=== PATIENT | female | born 1950 | race Caucasian/White ===

== ENCOUNTER → 2024-04-09 13:25 | Outpatient (REF) | payer MEDICARE, OTHER, SELFPAY | LOC: HWRAD 13:25 | PROVIDERS: ATTENDING PHYSICIAN Obstetrics & Gynecology Gynecologic Oncology; FAMILY PHYSICIAN Family Medicine | DX: C54.1 Malignant neoplasm of endometrium (principal) | CPT/HCPCS: 71260; 74177; Q9967 ==

== ENCOUNTER → 2024-04-21 08:49 | Outpatient (REF) | payer MEDICARE, OTHER, SELFPAY ==
[2024-04-21 10:35] LABS: % Basophils 0.3 % (0-2); % Eosinophils 2.7 % (0-6); % Immature Granulocytes 0.4 % (0-0.5); % Lymphocytes 21.8 % (20.5-51.1); % Monocytes 6.7 % (1.7-9.3); % Neutrophils 68.1 % (42.2-75.2); Absolute Eosinophils 0.2 10^3/uL (0-0.7); Absolute Lymphocytes 1.5 10^3/uL (1.2-3.4); Absolute Monocytes 0.5 10^3/uL (0.1-0.6); Absolute Neutrophils 4.6 10^3/uL (1.4-6.5); Hematocrit 42.2 % (37.0-47.0); Hemoglobin 14.4 g/dL (12.0-16.0); Mean Corp Hgb Conc. 34.1 g/dL (33.0-37.0); Mean Corpuscular Hgb 31.3 pg (27.0-31.0); Mean Corpuscular Volume 91.7 fL (81.0-99.0); Mean Platelet Volume 10.8 fL (7.4-10.4); Nucleated Red Blood Cells % 0 %; Platelet Count 192 10^3/uL (130-400); Red Cell Dist. Width 12.9 % (11.5-14.5); White Blood Cell Count 6.8 10^3/uL (4.8-10.8)
[2024-04-21 11:49] LABS: ALT (SGPT) 25 U/L (0-35); AST (SGOT) 27 U/L (14-36); Albumin 4.1 g/dl (3.5-5.0); Alkaline Phosphatase 66 U/L (38-126); Blood Urea Nitrogen 14 mg/dl (7-17); Calcium 9.7 mg/dl (8.4-10.2); Carbon Dioxide 29 mmol/L (22-30); Chloride 104 mmol/L (98-107); Glucose 125 mg/dl (70-99); Potassium 4.5 mmol/L (3.5-5.1); Sodium 142 mmol/L (135-145); Total Bilirubin 0.3 mg/dl (0.2-1.3); Total Protein 6.7 g/dl (6.3-8.2); eGFR > 60.00
== END ==
LOC: SDSPAT 08:49
PROVIDERS: ATTENDING PHYSICIAN Obstetrics & Gynecology Gynecologic Oncology; FAMILY PHYSICIAN Family Medicine
DX: Z01.818 Encounter for other preprocedural examination (principal)
CPT/HCPCS: 36415; 80053; 85025; 86850; 86900; 86901

== ENCOUNTER 2024-04-28 07:07 | Day surgery (SDC) | payer MEDICARE, OTHER, SELFPAY ==
[2024-04-21 09:44] VITALS: BMI 30.3
--- NOTE | 2024-04-26 20:08 | W.CON.GYNONC ---
Chief Complaint
-
endometrial cancer
History of Present Illness
73�year�old woman [id number] to me by Dr. Paige Roberts for endometrial cancer. Patient has had postmenopausal bleeding,
her workup included ultrasound of pelvis March 23, 2024 at [facility] indicating uterus to be anteverted measuring
10.9 x 5.6 x 7.4 cm, there is a 5.2 cm solitary left�sided myometrial fibroid which is unchanged in size. Endometrium is thickened
at 12 mm. Right ovary is not seen, left ovary also is not seen. There is no evidence of mass or fluid in the pelvis
In office endometrial biopsy was performed March 11, 2024, that shows detached clusters of adenocarcinoma cells suspicious
for serous carcinoma. I repeated the endometrial biopsy on 04/03 and confirmed high grade serous carcinoma.
Her past medical history significant for hypertension, palpitations, open angle glaucoma, migraines with aura, impaired fasting
glucose and obstructive sleep apnea.
Past surgical history includes tonsillectomy 1958, wisdom teeth extraction 1978, C�section 1965, cyst removed from right thumb,
bilateral carpal tunnel release 2022 and night right knee replacement 2022
Medications include amlodipine,brrimonidine eyedrops,cosopt eyedrops, fish oil capsule, CoQ 10, glucosamine, multivitamin,
vitamin D3, Fioricet and Zofran
Family history significant for maternal grandmother with ovarian colon cancer,
Patient denies tobacco use, patient denies alcohol or drug abuse. Lives at home with and mother, she is a retired nurse
and [employer] RN in [employer]
Medical History
Social History
Tobacco: Non-smoker
Alcohol: None
Drug: None
Personal:
Living: With Family
Employment: Retired
Allergies
Allergies reflect when allergies were last updated in [facility].
All:�Lisinopril�(angioedema)�,�Bactrim�(rash,�flu�symptoms)�
lisinopril Allergy (Verified 10/16/24 09:49)
Swelling
Sulfa (Sulfonamide Antibiotics) Allergy (Verified 04/22/24 09:49)
Rash
Physical Exam
Physical Exam
General: Well developed, well nourished patient. In no acute distress.
Neck: No thyromegaly. No cervical lymphadenopathy.
Lungs: Clear to auscultation. Good air movement bilaterally.
Cardiac: Regular rate. Regular rhythm. No murmurs appreciated.
Right Breast: No masses or dimpling. No nipple discharge.
Left Breast: No masses or dimpling. No nipple discharge.
Abdomen: Abdomen is soft. Non�tender to palpation. Non�distended.
Extremities: No edema.
Hematologic/Lymphatic: No palpable lymphadenopathy.
Musculoskeletal: Normal range of motion. Strength and Tone are normal.
Skin:Non�jaundiced. No petechia. No purpura.
Neurologic: Speech is fluent. Normal gait and station. Cranial nerves intact.
External normal labia, urethra, anus.
Vagina: Normal mucosa.
Cervix: normal appearance, no discharge.
Uterus: normal size.
Adnexa: No pelvic mass.
RVE: no masses or nodularity
Impression / Plan
-
I spoke with the patient and her and explained to her diagnosis of endometrial cancer incidence workup and generalized
principles of the treatments.
I recommended labs including CMP CBC CA125 urinalysis coagulation studies in preparation for surgery
CT of chest abdomen and pelvis will be obtained to assess preoperatively extent of disease
My initial recommendation is for the patient to undergo total laparoscopic hysterectomy, bilateral salpingo�oophorectomy with
staging to include injection of cervix, excision and mapping of sentinel lymph nodes, peritoneal washings, omental biopsy and
resection of any additional visible disease. This procedure can be completed robotically, procedure will be scheduled probably in
late April.
Risk of surgery including infection bleeding injury to adjacent organs DVT pulmonary embolism and cardiovascular complications
were discussed and reviewed
This patient has multiple family members with malignancies including endometrial cancer colorectal cancer, she has a lot of
concern about genetic predisposition and Colaris panel will be obtained with a reflex to Eusebio.
If the malignancy is low risk we may consider observation, if the malignancy is high risk or there is extrauterine disease, patient
may require postoperative adjuvant treatment with combination of chemotherapy plus minus immunotherapy as well as possible
radiotherapy. Her treatment will be personalized based on molecular characteristics of her tumor
I did request that she obtains medical clearance and ECG from primary care physician preoperatively
She will be notified of the surgery by our schedulers and surgery will be scheduled at [facility]
[2024-04-28] VITALS (9 sets, daily range): BP systolic 122–152; BP diastolic 57–77; BMI 30.3
[2024-04-28] MEDS: NEURONTIN 300 MG PO (12:06)
[2024-04-28] MEDS: MOBIC 15 MG PO (12:06)
[2024-04-28] MEDS: TYLENOL 1000 MG PO (12:07)
[2024-04-28] MEDS: HEPARIN 5000 UNITS SC (12:39)
[2024-04-28] MEDS: DILAUDID 0.25 MG IV (16:15)
--- NOTE | 2024-04-28 17:29 | OR.RPT ---
Operative Report
Operative Report
Date of procedure:April 28, 2024
Preoperative diagnosis: Endometrial cancer high-grade serous carcinoma
Postoperative diagnosis: Same
Surgeon: Anil Villegas
Assist: Brianna Youssef PA-C
& Glen Henderson
Procedure:
Robotic assisted total laparoscopic hysterectomy, bilateral salpingo-oophorectomy, with infracolic omentectomy 10302
Injection of cervix with ICG dye for mapping and identification of sentinel lymph nodes 85281-73
Robotic assisted laparoscopic bilateral pelvic sentinel lymphadenectomy 32470�[id number]
TAP block 95727
Anesthesia: General Endotracheal intubation
Estimated blood loss 100 cc
Urine output: 300 cc
Procedure in detail: This patient was brought to the operating room for definitive management of endometrial cancer. Upon arrival to the operating room she was placed in supine position. General anesthesia was administered she was intubated
without any difficulty. She was placed in lithotomy position using yellowfin stirrups and her arms were wrapped in foam and placed along the patient's side properly. She was prepped on the abdomen perineum and vagina and she was draped. Timeout
procedure was carried out she received 2 g of Ancef and 500 mg of Flagyl prophylactically and had already received 5000 units of heparin. Min catheter was placed under sterile condition for bladder drainage. Anterior lip of the cervix was
grasped with single-tooth tenaculum. A total of 4 cc ICG dye was injected in the cervix at 3 and 9:00 positions, and the injection was repeated at 5 mm and 10 mm deep stations. Uterine manipulator was inserted after dilation of cervix and the
uterus sounded to approximately 14 cm. Vaginal cuff occluder was insufflated.
Next Veress needle was inserted just below the left subcostal margin and insufflation with CO2 gas was performed up to pressure of 15 mmHg. Following this 8 mm XL trocar was introduced 25 cm cephalad to symphysis pubis in the abdomen and a survey
of the upper abdomen reveals both right and left subdiaphragms to be normal omentum is without any abnormalities. Liver spleen stomach appeared to be within normal limits. 8 mm robotic ports were placed in the right and left upper quadrants as
well as right and left lateral abdomen. Tap block was performed with 60 cc combination of ropivacaine and Decadron split on the right and left side injected 2 fingerbreadths below subcostal margins as well as right and left lateral abdomen under
direct visualization. Once this was completed the patient was placed in 28 degree Trendelenburg. We went ahead and docked the robotic system. Washings were collected from posterior cul-de-sac and submitted for cytology. Right and left round
ligaments were sealed and divided anterior and posterior leaves of the broad ligament were dissected open. Both infundibulopelvic ligaments were isolated, sealed 3 times and divided tubes and ovaries were left attached to the uterus.
Retroperitoneal spaces were opened and paravesical and pararectal spaces were developed. Using near infrared system, I followed the track of the green dye leaving the cervix and noted that there was 3 sentinel lymph nodes identified along external
iliac artery, internal iliac artery and common iliac artery on the left side all 3 of these lymph nodes were removed and submitted to pathology. On the right side there was 1 sentinel lymph node in the right obturator fossa and a second lymph node
in the proximal aspect of right external iliac artery and adjacent to right common iliac artery and these were removed and submitted to pathology. Good hemostasis was present throughout. Bladder flap was sharply developed and advanced below the
cervical vaginal junction. Uterine arteries followed by cardinal ligaments followed by uterosacral ligaments were sealed and divided. Circumferential incision was made around the JOVANNA ring until the specimen was completely divided uterus and cervix
with bilateral tubes and ovaries were removed through the vagina. Omentum was brought into the view infracolic omentectomy was performed using vessel sealer ligating large omental vessels and the entire omentum was submitted to the pathology
removed through the vagina. We did examined the bowel and there was no obvious evidence of abnormalities peritoneal surfaces were without any evidence of implants or abnormalities. We proceeded to close the vaginal cuff. Vaginal cuff was closed
using 0 Vicryl suture ligature in a [id number]-[id number] fashion at both apices and once this was completed a V-Loc suture was used to close the vaginal cuff starting from right to the left side and then back to the right side in a bidirectional mass
closure fashion. We irrigated all operative sites, good hemostasis was present. Robotic system was undocked all instruments were removed and pneumoperitoneum was released. Patient returned back to recovery room stable awake and extubated
condition. Counts of laps instruments and needle was correct x 2. I was present and scrubbed for entire procedure as dictated above. Vagina was examined and there was no evidence of lacerations or bleeding.
Disposition: To PACU, stable awake, extubated
== END 2024-04-28 18:30 | disposition home or self-care (01) ==
LOC: SDS 07:07
PROVIDERS: Pathology Anatomic Pathology & Clinical Pathology; ATTENDING PHYSICIAN Obstetrics & Gynecology Gynecologic Oncology
DX: C54.1 Malignant neoplasm of endometrium (principal); C79.61 Secondary malignant neoplasm of right ovary; D25.9 Leiomyoma of uterus, unspecified; N72 Inflammatory disease of cervix uteri; Z17.0 Estrogen receptor positive status [ER+]
CPT/HCPCS: 58571; 38900; 38570; 88307; 88309; 86900; 86901; 88112; 88341; 88342; 88360